=== PATIENT | male | born 1970 | race Caucasian/White ===

== ENCOUNTER 2016-09-29 13:26 | Day surgery (SDC) | payer OTHER ==
[~2016-09-29] VITALS: Ht 177.8 cm; Wt 100.1 kg
[2016-09-29] VITALS (8 sets, daily range): BP systolic 100–156; BP diastolic 56–83; PULSE 54–67; RESP 12–18; O2SAT 95–98
[~2016-09-29 13:26] MED LIST: Acetaminophen IV 1,000 MG in IV Premix 1 EACH IV ONE; OXYC1TAB24 PO; TAM4; TOR10T
[2016-09-29] MEDS ORDERED: Ondansetron 2 mg/mL 2 mL Inj ONE (13:27)
[2016-09-29] MEDS ORDERED: MetoCLOpramide 5 mg/mL 2 mL Inj ONE (13:27)
[2016-09-29] MEDS ORDERED: Dexamethasone 4 mg/mL Inj ONE (13:27)
[2016-09-29] MEDS ORDERED: fentaNYL-PF 50 mCg/mL 2 mL Inj ONE (13:27)
[2016-09-29] MEDS ORDERED: Propofol 10,000 mCg/mL 20 mL Inj ONE (13:27)
[2016-09-29] MEDS ORDERED: TAMS0.4C98 PO (14:12)
[2016-09-29] MEDS ORDERED: KETO10TA PO (14:12)
--- NOTE | 2016-09-29 17:13 | PCM.HPANE ---
Patient Data Date of Service: Sep 29, 2016 Surgeon Admitting Provider: Attending Provider:Abdi Pennington MD Primary Care Physician:Ari Other Provider:John Mayer Anesthesia Reason for Visit Right Kidney Stone Ht/WT & BMI Height (Feet): 5 Height (Inches): 10 Weight (Kilograms): 100.1 Body Mass Index 31.00 Allergies Coded Allergies: No Known Allergies (Verified , 09/29/16) Past Anesthesia History Anesthesia History: Denies:: Abnormal Airway, Anesthesia Reactions, Difficult Intubation, Fam Anesthesia Reaction, Fam Malignant Hypertherm, Malignant Hyperthermia Diabetes History Hx Diabetes?: No MRSA MRSA: No Medications Hypertension Medication: No Home Meds Incl Beta Maribel: No Reported Medications Ketorolac Tromethamine 10 Mg [id number] Mg PO TID 09/29/16 Tamsulosin (Flomax)0.4 Mg Capsule0.4 Mg PO DAILY 09/29/16 oxyCODONE-Acetaminophen 5-325 mg 1 Each Tablet1 Tab PO Q4H PRN For Pain Ref 0 09/27/16 Discontinued Reported Medications Ketorolac-Expunged Drug, Do Not Renew! 10 Mg Tablet 09/12/07 Tamsulosin-Expunged Drug, Do Not Renew! (Flomax-Expunged Drug, Do Not Renew!) 0.4 Mg Capsule 09/12/07 History History of ENT Problems?: No HEENT History: Denies:: Abnormal Airway Difficult Intubation Dysphagia Hearing Problem Sinus Problem TMJ Denture Type: Retainer/Leather Repairer Teeth Condition: Within Normal Limits Hx of Heart Problems?: Yes Cardiovascular History: Denies:: Chest Pain Coronary Artery Disease Irregular Heartbeat Rheumatic Fever Other Cardiac History: no MS Hx of Respiratory Problem?: No Respiratory History: Denies:: Dyspnea Use of C-PAP Machine Other Resp Pertinent History: no DIA Hx Neurologic Problems?: No Neurological History: Denies:: CVA Seizures TIA Hx of GI Problems?: No Gastrointestinal History: Denies:: Gastroesphageal Reflux Liver Disease Hx of Problems?: Yes Genitourinary History: Positive for:: Kidney Stones (nephrolithiasis, currently R-side) Denies:: HX of Hemodialysis Urinary Tract Infection HX of Peritoneal Dialysis: No Male Hx: Denies:: Prostate Problems Scrotal Mass Testicular Surgery Skin History: Denies:: History Skin Disorders? Pressure Ulcers Hx Musculoskeletal Problems?: No Musculoskeletal History: Denies:: Back Injury Degenerative Joint Fibromyalgia Joint Replacement Musculoskeletal Trauma Myasthenia Gravis Osteoarthritis Rheumatoid Arthritis Hx of Psycho/Social Problems?: No Hx Surgeries?: Yes ([facility] 2008) Hx Any Other Health Problems?: No Other History: Denies:: Cancer Endocrine Disease Hospitalization Thyroid Disease History Blood Transfusions: Positive for:: Accept Blood Products? Denies:: Blood Transfusions Hx Diabetes: No Hx Alcohol Use: YesAlcoholic Drinks Per Day: two to three a monthHx Substance Use: No Smoking Status: Former Smoker (quit 1995, smoked less than 5 years) Have You Smoked inLast 12 mo: No Stop/Bang Treated for Sleep Apnea?: No Do You Have a CPAP Machine?: No S-Snoring: Do You Snore Loudly: Yes T-Tired: feel tired, fatigued: No O-Obsered: Observed not breath: No P-Blood Pressure: treated: Yes B- Body Mass Index > 35 kg/m2: No A- Age over 50: No N- Neck Large Circumference: No G- Gender Male: Yes DIA Total Score: 3 DIA Risk Assessment: Low Risk, <3 Yes DIA Category 2: Yes Risk Assessment Category Category 1A: Patient has history of documented sleep apnea, and HAS NOT received any narcotic, sedative or anesthesia administration during this stay. Category 1B: Patient has history of documented sleep apnea, and HAS received any narcotic , sedative or anesthesia administration during this stay Category 2: Patient has SUSPECTED Obstructive Sleep Apnea, and HAS received any narcotic , sedative or anesthesia administration during this stay. Category 3: Patient has SUSPECTED Obstructive Sleep Apnea and HAS NOT received narcotic, sedative or anesthesia administration during this stay. Category 4: Outpatient in Procedural Areas with known sleep apnea or who screen positive for High Risk via the STOP/BANG questionnaire. Exam Exam Vital Signs Vital Signs Date Time Temp Pulse Resp B/P Pulse Ox O2 Delivery O2 Flow Rate FiO2 09/29/16 14:08 36.6 67 16 123/73 96 Room Air General Appearance: Alert, Oriented X3, Cooperative, No Acute Distress HEENT/AIRWAY: MP 1, Neck Movement (FROM), Mouth Opening (>3), Other (tmd<3) Lungs: Normal Air Movement Heart: Exam Unremarkable, Regular Rate/Rhythm, Normal S1, Normal S2, No Murmurs /Rubs/Gallops Meds/Labs/Diagnostics Admission Meds Current Medications Acetaminophen (Tylenol IV) 1,000 mg STK-MED ONCE IV Last administered on t 17:00; Start 09/29/16 at 14:28; Stop 09/29/16 at 14:29; Status DC Plan Impression Patient chart reviewed, patient interviewed and anesthestic plan with risks, benefits, and alternatives discussed, and informed consent obtained. NPO per Anesth. Guidelines: Yes ASA Physical Status: ASA1 Normal Healthy Anesthetic Plan: GA Bene/Risks/Altern/Consents: Yes HP Complete Prior to Induction: Yes Jose Antonio Clemons MD Sep 29, 2016 17:12
[2016-09-29] MEDS: Lactated Ringer's 1,000 ML IV SCH ×2 (17:34→18:03)
[2016-09-29] MEDS ORDERED: Lactated Ringer's 500 ML IV PRN (17:43)
[2016-09-29] MEDS ORDERED: Lactated Ringer's 1,000 ML IV SCH (17:43)
[2016-09-29] MEDS ORDERED: fentaNYL-PF 50 mCg/mL 2 mL Inj IVPUSH PRN (17:45)
[2016-09-29] MEDS ORDERED: Dexamethasone 4 mg/mL Inj IVPUSH PRN (17:45)
[2016-09-29] MEDS ORDERED: Phenylephrine 10,000 mCg/mL Inj IVPUSH PRN (17:45)
[2016-09-29] MEDS ORDERED: MetoCLOpramide 5 mg/mL 2 mL Inj IVPUSH PRN (17:45)
[2016-09-29] MEDS ORDERED: HYDROmorphone 1 mg/mL Inj IVPUSH PRN (17:45)
[2016-09-29] MEDS ORDERED: Ondansetron 2 mg/mL 2 mL Inj IVPUSH PRN (17:45)
[2016-09-29] MEDS ORDERED: EPHEDrine Sulfate 50 mg/mL Inj IVPUSH PRN (17:45)
[2016-09-29] MEDS ORDERED: Furosemide 10 mg/mL 2 mL Inj IV ONE (18:05)
--- NOTE | 2016-09-29 19:23 | PCM.ANEP1 ---
Post Anesthesia PACU Phase 1 Assessment Date of Service: Sep 29, 2016 Vital Signs Vital Signs Date Time Temp Pulse Resp B/P Pulse Ox O2 Delivery O2 Flow Rate FiO2 09/29/16 18:35 54 13 124/63 96 Room Air 09/29/16 18:30 36.4 56 12 126/69 96 Room Air 09/29/16 18:25 58 14 100/58 95 Room Air 09/29/16 18:20 60 17 124/56 95 Room Air 09/29/16 18:15 58 17 126/79 95 Room Air 09/29/16 18:10 36.0 66 18 156/83 95 Room Air 09/29/16 14:08 36.6 67 16 123/73 96 Room Air Anesthetic Administered: GA Level of Alertness: Awake, talking BALL's with Equal Strength: Yes Pain: No Pain Scale Score: 0 Nausea or Vomiting: No CV Function & Hydration Stable: Yes Airway Device: NONE Oxygen Delivery: Simple Mask Lungs: Normal Air Movement Summary 09/29/16 18:35 54 13 124/63 96 Room Air PACU Phase 2 Assessment Complications: No Follow up Care: N/A Patient Instructions Provided: N/A Jose Antonio Clemons MD Sep 29, 2016 19:23
--- NOTE | 2016-09-29 20:12 | OP ---
[address] [id number] OPERATIVE REPORT PATIENT: XI STEELE : 1970 MR#: [id number] ADMIT: 09/29/2016 JOB ID: [id number] DATE OF SURGERY: 09/29/2016 SURGEON: Abdi Pennington MD PREOPERATIVE DIAGNOSIS(ES): 1. Obstructing 6 x 6 mm right ureteropelvic junction calculus. 2. Gross hematuria. 3. Intermittent right renal colic. 4. Right nephrolithiasis. 5. History of calcium nephrolithiasis. POSTOPERATIVE DIAGNOSIS(ES): 1. Obstructing 6 x 6 mm right ureteropelvic junction calculus. 2. Gross hematuria. 3. Intermittent right renal colic. 4. Right nephrolithiasis. 5. History of calcium nephrolithiasis. OPERATION PERFORMED: Right extracorporeal shock wave lithotripsy (maximal power level 6.0 x2500 shocks) ANESTHESIOLOGIST: Jose Antonio Clemons MD. PROCEDURE SUMMARY: The patient was positioned supine on the lithotripsy gurney and the above-described stone was localized in the X, Y and Z plane. Lithotripsy was then commenced at minimal power level and gradually increased to maximum power level. The stone and its fragments were relocalized numerous times throughout the case using C-arm radiography. The procedure was then terminated. The patient was awakened, transferred to the gurney and transferred to the recovery area awake in stable condition. The patient tolerated the procedure well.
== END 2016-09-29 23:59 | disposition home or self-care (01) ==
LOC: SAS 13:26
PROVIDERS: ATTEND Specialist
DX: N20.0 Calculus of kidney (principal); R31.0 Gross hematuria; Z79.899 Other long term (current) drug therapy; Z87.891 Personal history of nicotine dependence
CPT/HCPCS: 50590; J0131; J1100; J1940; J2250; J2405; J2704; J2765; J3010; J7120